=== PATIENT | male | born 1990 | race Caucasian/White ===

== ENCOUNTER 2018-03-19 08:39 | Observation (INO) ==
[2018-03-19] MEDS ORDERED: Ziprasidone injection 20 MG/ML VIAL IM ONE (08:47)
[2018-03-19] MEDS ORDERED: 0.9 % Sodium Chloride 1,000 ML IVC ONE ×2 (08:54→10:32)
--- NOTE | 2018-03-19 08:57 | Emergency Department Note ---
Overdose - [facility] Narrative Medical decision making narrative: Polysubstance abuse with accidental overdose with potential aspiration pneumonia The patient is hemodynamically stable with current treatment. He is still altered with his mental status most likely secondary to polysubstance abuse as well as chemical strains. The patient will be admitted for further stabilization. 1102: Discussed the case with hospitalist and agreed to admit the patient for further stabilization. Family was informed current assessment and plan and agree with disposition. They were informed that if the patient wakes up and is medically cleared and coherent he has the option of leaving the hospital on his own volition. 1340: The patient's ABG improved significantly and will wean to NRB as tolerated. The patient is stable for floor transfer - Differential Diagnosis Likely: accidental drug ingestion, abuse/neglect - Medical Records Medical records reviewed: Yes I reviewed the patient's medical records. - Lab Data Result diagrams: 03/19/18 09:25 03/19/18 09:25 Lab Results 03/19/18 03/19/18 03/19/18 Range/Units 09:02 09:02 09:25 WBC 19.7 H (4.3-11.1) K/mcL RBC 5.05 (4.19-5.50) M/mcL Hgb 16.0 (12.9-16.9) g/dL Hct 52.4 H (37.5-50.1) % MCV 103.8 H (83.0-100.0) fL MCH 31.7 (28.0-33.3) pg MCHC 30.5 L (31.6-35.5) g/dL RDW 12.0 (11.5-14.5) % Plt Count 293 (140-400) K/mcL MPV 10.6 (9.4-12.4) fL Immature Gran % 0.8 (0-4) % Seg Neutrophils % 87.9 % Lymphocytes % 7.1 % Monocytes % 3.5 % Eosinophils % 0.2 % Basophils % 0.5 % Neutrophils # 17.3 H (1.6-8.9) K/mcL Lymphocytes # 1.4 (0.6-4.6) K/mcL Monocytes # 0.7 (0.0-1.3) K/mcL Eosinophils # 0.0 (0.0-0.6) K/mcL Basophils # 0.1 (0.0-0.2) K/mcL Sample Site ABG pH (7.32-7.45) pH Units ABG pCO2 (35-45) mmHg ABG pO2 (85-104) mmHg ABG HCO3 (21-27) mEq/L ABG Total CO2 (20-26) mEq/L ABG O2 Saturation (95-98) % ABG Base Excess (-2 to 3) mEq/L Killian Test O2 Delivery Device Inspired O2 (1-15=lpm [id number]=%) Sodium (136-145) mEq/L Potassium (3.5-5.1) mEq/L Chloride (98-107) mEq/L Carbon Dioxide (23-29) mEq/L BUN (6-20) mg/dL Creatinine (0.70-1.30) mg/dL Est GFR ( Amer) (> 60) Est GFR (Non-Af Amer) (> 60) BUN/Creatinine Ratio (6-26) Glucose (70-105) mg/dL Calculated Osmolality (280-300) Lactic Acid (0.5-2.2) mmol/L Calcium (8.6-10.3) mg/dL Total Bilirubin (0.3-1.0) mg/dL Direct Bilirubin (0.0-0.2) mg/dL Indirect Bilirubin (0.0-1.2) mg/dL AST (13-39) Units/L ALT (7-52) Units/L Alkaline Phosphatase (34-104) Units/L Creatine Kinase (30-223) Units/L Serum Total Protein (6.4-8.9) g/dL Albumin (3.5-5.7) g/dL Globulin (2.4-3.5) g/dL Albumin/Globulin Ratio (1.1-2.2) Urine Color Yellow (Yellow) Urine Clarity Clear (Clear) Urine pH 5.5 (5.0-8.0) pH Units Ur Specific [place] 1.020 (1.010-1.025) Urine Protein Trace (Neg-Trace) mg/dL Urine Glucose (UA) 100 H (Normal) mg/dL Urine Ketones Negative (Negative) mg/dL Urine Blood Trace-lysed H (Negative) Urine Nitrite Negative (Negative) Urine Bilirubin Negative (Negative) Urine Urobilinogen Normal (Normal) mg/dL Ur Leukocyte Esterase Negative (Negative) Urine Microscopic RBC 0-3 (0-3) per hpf Urine Microscopic WBC 0-3 (0-3) per hpf Ur Squamous Epith Cells Few (None-Few) per lpf Amorphous Sediment Moderate H (Few) Salicylates (15.0-30.0) mg/dL Urine Opiates Screen Negative (Lfitzt=424) ng/mL Ur Oxycodone Screen Negative (Cutoff= 100) ng/mL Acetaminophen (10-20) mcg/mL Ur Barbiturates Screen Negative (Xmbcvk=125) ng/mL Ur Phencyclidine Scrn Negative (Cutoff=25) ng/mL Ur Amphetamines Screen Positive H (Dbskrg=1560) ng/mL U Benzodiazepines Scrn Positive H (Khocxe=988) ng/mL Urine Cocaine Screen Negative (Cutoff= 300) ng/mL U Marijuana (THC) Screen Positive H (Cutoff = 50) ng/mL Ethyl Alcohol (Less than 10) mg/dL Person Notif of Crit 03/19/18 03/19/18 03/19/18 Range/Units 09:25 09:34 11:10 WBC (4.3-11.1) K/mcL RBC (4.19-5.50) M/mcL Hgb (12.9-16.9) g/dL Hct (37.5-50.1) % MCV (83.0-100.0) fL MCH (28.0-33.3) pg MCHC (31.6-35.5) g/dL RDW (11.5-14.5) % Plt Count (140-400) K/mcL MPV (9.4-12.4) fL Immature Gran % (0-4) % Seg Neutrophils % % Lymphocytes % % Monocytes % % Eosinophils % % Basophils % % Neutrophils # (1.6-8.9) K/mcL Lymphocytes # (0.6-4.6) K/mcL Monocytes # (0.0-1.3) K/mcL Eosinophils # (0.0-0.6) K/mcL Basophils # (0.0-0.2) K/mcL Sample Site ABG pH (7.32-7.45) pH Units ABG pCO2 (35-45) mmHg ABG pO2 (85-104) mmHg ABG HCO3 (21-27) mEq/L ABG Total CO2 (20-26) mEq/L ABG O2 Saturation (95-98) % ABG Base Excess (-2 to 3) mEq/L Killian Test O2 Delivery Device Inspired O2 (1-15=lpm [id number]=%) Sodium 139 (136-145) mEq/L Potassium 4.2 (3.5-5.1) mEq/L Chloride 97 L (98-107) mEq/L Carbon Dioxide 17 L (23-29) mEq/L BUN 17 (6-20) mg/dL Creatinine 2.33 H (0.70-1.30) mg/dL Est GFR ( Amer) 41 L (> 60) Est GFR (Non-Af Amer) 34 L (> 60) BUN/Creatinine Ratio 7 (6-26) Glucose 269 H (70-105) mg/dL Calculated Osmolality 299 (280-300) Lactic Acid 2.8 H (0.5-2.2) mmol/L Calcium 9.8 (8.6-10.3) mg/dL Total Bilirubin 0.4 (0.3-1.0) mg/dL Direct Bilirubin 0.1 (0.0-0.2) mg/dL Indirect Bilirubin 0.3 (0.0-1.2) mg/dL AST 30 (13-39) Units/L ALT 17 (7-52) Units/L Alkaline Phosphatase 91 (34-104) Units/L Creatine Kinase 272 H (30-223) Units/L Serum Total Protein 8.2 (6.4-8.9) g/dL Albumin 5.4 (3.5-5.7) g/dL Globulin 2.8 (2.4-3.5) g/dL Albumin/Globulin Ratio 1.9 (1.1-2.2) Urine Color (Yellow) Urine Clarity (Clear) Urine pH (5.0-8.0) pH Units Ur Specific [place] (1.010-1.025) Urine Protein (Neg-Trace) mg/dL Urine Glucose (UA) (Normal) mg/dL Urine Ketones (Negative) mg/dL Urine Blood (Negative) Urine Nitrite (Negative) Urine Bilirubin (Negative) Urine Urobilinogen (Normal) mg/dL Ur Leukocyte Esterase (Negative) Urine Microscopic RBC (0-3) per hpf Urine Microscopic WBC (0-3) per hpf Ur Squamous Epith Cells (None-Few) per lpf Amorphous Sediment (Few) Salicylates < 2.5 L (15.0-30.0) mg/dL Urine Opiates Screen (Bodjih=025) ng/mL Ur Oxycodone Screen (Cutoff= 100) ng/mL Acetaminophen < 10 L (10-20) mcg/mL Ur Barbiturates Screen (Vhcntb=165) ng/mL Ur Phencyclidine Scrn (Cutoff=25) ng/mL Ur Amphetamines Screen (Vbvmgt=3423) ng/mL U Benzodiazepines Scrn (Gunwyn=759) ng/mL Urine Cocaine Screen (Cutoff= 300) ng/mL U Marijuana (THC) Screen (Cutoff = 50) ng/mL Ethyl Alcohol < 10 (Less than 10) mg/dL Person Notif of Crit 03/19/18 Range/Units 11:49 WBC (4.3-11.1) K/mcL RBC (4.19-5.50) M/mcL Hgb (12.9-16.9) g/dL Hct (37.5-50.1) % MCV (83.0-100.0) fL MCH (28.0-33.3) pg MCHC (31.6-35.5) g/dL RDW (11.5-14.5) % Plt Count (140-400) K/mcL MPV (9.4-12.4) fL Immature Gran % (0-4) % Seg Neutrophils % % Lymphocytes % % Monocytes % % Eosinophils % % Basophils % % Neutrophils # (1.6-8.9) K/mcL Lymphocytes # (0.6-4.6) K/mcL Monocytes # (0.0-1.3) K/mcL Eosinophils # (0.0-0.6) K/mcL Basophils # (0.0-0.2) K/mcL Sample Site R Radial ABG pH 7.17 L* (7.32-7.45) pH Units ABG pCO2 64 H (35-45) mmHg ABG pO2 65 L (85-104) mmHg ABG HCO3 23 (21-27) mEq/L ABG Total CO2 25 (20-26) mEq/L ABG O2 Saturation 85 L (95-98) % ABG Base Excess -6 L (-2 to 3) mEq/L Killian Test N/A O2 Delivery Device Oxy Mask Inspired O2 40.0 (1-15=lpm by94-785=%) Sodium (136-145) mEq/L Potassium (3.5-5.1) mEq/L Chloride (98-107) mEq/L Carbon Dioxide (23-29) mEq/L BUN (6-20) mg/dL Creatinine (0.70-1.30) mg/dL Est GFR ( Amer) (> 60) Est GFR (Non-Af Amer) (> 60) BUN/Creatinine Ratio (6-26) Glucose (70-105) mg/dL Calculated Osmolality (280-300) Lactic Acid (0.5-2.2) mmol/L Calcium (8.6-10.3) mg/dL Total Bilirubin (0.3-1.0) mg/dL Direct Bilirubin (0.0-0.2) mg/dL Indirect Bilirubin (0.0-1.2) mg/dL AST (13-39) Units/L ALT (7-52) Units/L Alkaline Phosphatase (34-104) Units/L Creatine Kinase (30-223) Units/L Serum Total Protein (6.4-8.9) g/dL Albumin (3.5-5.7) g/dL Globulin (2.4-3.5) g/dL Albumin/Globulin Ratio (1.1-2.2) Urine Color (Yellow) Urine Clarity (Clear) Urine pH (5.0-8.0) pH Units Ur Specific [place] (1.010-1.025) Urine Protein (Neg-Trace) mg/dL Urine Glucose (UA) (Normal) mg/dL Urine Ketones (Negative) mg/dL Urine Blood (Negative) Urine Nitrite (Negative) Urine Bilirubin (Negative) Urine Urobilinogen (Normal) mg/dL Ur Leukocyte Esterase (Negative) Urine Microscopic RBC (0-3) per hpf Urine Microscopic WBC (0-3) per hpf Ur Squamous Epith Cells (None-Few) per lpf Amorphous Sediment (Few) Salicylates (15.0-30.0) mg/dL Urine Opiates Screen (Hxckdp=948) ng/mL Ur Oxycodone Screen (Cutoff= 100) ng/mL Acetaminophen (10-20) mcg/mL Ur Barbiturates Screen (Lzuqwh=348) ng/mL Ur Phencyclidine Scrn (Cutoff=25) ng/mL Ur Amphetamines Screen (Sfuarb=1661) ng/mL U Benzodiazepines Scrn (Kzysvb=793) ng/mL Urine Cocaine Screen (Cutoff= 300) ng/mL U Marijuana (THC) Screen (Cutoff = 50) ng/mL Ethyl Alcohol (Less than 10) mg/dL Person Notif of Crit dr kyle vidal - Radiology Data Radiology results reviewed: Yes I reviewed the patient's radiology results. Chest X-Ray 03/19/18 09:51 IMPRESSION: 1. Subtle left upper lobe airspace disease could represent pneumonia. Recommend chest radiograph in 8 weeks to confirm resolution. D/ / Terry Altamirano MD / Terry Altamirano MD Interpreting Provider: Terry Altamirano MD - EKG Data EKG attestation: Yes I reviewed and interpreted this EKG. EKG shows normal: axis, intervals Rate: tachycardia Interpretation: nonspecific ST-T wave changes Overdose HPI - General Chief Complaint: ED Overdose Stated Complaint: overdose Time Seen by Provider: 03/19/18 08:44 Source: family, EMS Mode of arrival: EMS Limitations: altered mental status Nursing Notes Reviewed: Yes Vital Signs Reviewed: Yes - History of Present Illness HPI Narrative: Patient was found on the basement of his parents only unconscious . She has office saw the patient at home and was given 4 mg of intranasal Narcan with minimal improvement. EMS squad arrived at the scene and the patient was given 2 mg of Narcan IV through a intraosseous IV access. 1000: I spoke to family and they told me the patient was done approximately 30 minutes to 2 hours. The patient apparently was bluish in appearance and had sonorous breathing when they evaluated him. EMS was called subsequently. The patient apparently had narcotics on him during that time. The patient does have a history of drug overdoses in the past. Pt Subjective Complaint: accidental overdose Onset (ago): unknown Intent: unknown How Overdose Was Discovered: family/friend present at time Associated symptoms: other (Agitation, hypoxia) Treatments Prior to Arrival: narcan - Related Data Home Medications Medication Instructions Recorded Confirmed Buprenorphine HCl/Naloxone HCl 1 tab PO BID 06/24/17 10/01/17 [Suboxone 8 mg-2 mg Sl Film] Allergies Allergy/AdvReac Type Severity Reaction Status Date / Time No Known Allergies Allergy Verified 07/01/15 20:54 Limitations: ROS unobtainable due to patients medical condition Past Medical History - Past Medical History Medical history: Reports: other Surgical history: Reports: appendectomy, other Psychiatric history: Reports: anxiety, depression - Social History Smoking Status: Current every day smoker Smokeless Tobacco Status: Yes Alcohol use: Reports: occasionally Drug use: Reports: opiates, marijuana, methamphetamine, IV Drug Use, prescription drug abuse Physical Exam - General Limitations: altered mental status General appearance: in distress - Head Head exam: atraumatic - Eye Eye exam: Present: mydriasis, periorbital tenderness. Absent: periorbital swelling - ENT ENT exam: mucous membranes moist, normal external ear exam, other - Neck Neck exam: Present: trachea midline, other (Track lockhart on the left lateral neck area) - Respiratory Respiratory exam: Present: normal lung sounds bilaterally, respiratory distress. Absent: wheezes, stridor - Cardiovascular Cardiovascular exam: Present: normal rhythm, tachycardia, normal heart sounds - Abdominal Exam Abdominal exam: Present: soft, tenderness. Absent: distention, guarding, rebound, rigidity - Extremities Exam Extremities exam: Present: normal inspection, full ROM. Absent: tenderness, pedal edema - Expanded Lower Extremity Exam Hip/Pelvis exam: Present: abrasion (Left anterior aspect) Upper leg exam: Absent: swelling, ecchymosis, deformity, erythema Knee exam: Present: full ROM. Absent: swelling, deformity Lower leg exam: Present: other (Right intraosseous IV access on the proximal tibia) Ankle exam: Absent: deformity Neurovascular/Tendon exam: Present: normal capillary refill, motor deficit, sensory deficit. Absent: extremity cold to touch, pallor - Skin Skin exam: Present: warm, intact. Absent: cyanosis, diaphoresis, erythema Course - Reevaluation(s) Reevaluation #1: The patient will be given Geodon 10 mg IM and if not improved with his agitation he will be given 2 mg of Ativan with 25 mg of Benadryl and we will reassess his agitation. Time: 08:55 Reevaluation #2: Patient is mildly improve his agitation and has minimal cooperative. He will be given 10 mg of Geodon and will a soft restraints for his safety as well as safety of staff for his assessment. Time: 09:24 Reevaluation #3: The patient was stable hemodynamically and maintaining saturations with O2 supplementation. He was given IV fluids as well as antibiotics secondary to potential aspiration pneumonia. The patient will be observed and admitted in the hospital for the next 24 hours for further stabilization. Time: 10:15 Additional Reevaluation(s): 1205: Patient's ABG shows acute respiratory acidosis secondary to acute respiratory failure from overdose. I discussed the patient results with hospitalist and agree with BiPAP to help alleviate his hypercarbia. The patient is able tolerate the BiPAP placement and will repeat the gas to see if he stabilizes. The patient otherwise is hemodynamically stable. Once the patient heads towards improvement he will be transferred to the general floor for further stabilization Vital Signs Temperature 98 F 03/19/18 08:41 Pulse Rate 160 03/19/18 08:41 Respiratory Rate 28 03/19/18 08:41 Blood Pressure 00/00 03/19/18 08:41 O2 Sat by Pulse Oximetry 96 03/19/18 08:41 Temperature 97.5 F L 03/19/18 14:35 Pulse Rate 98 03/19/18 14:35 Respiratory Rate 16 03/19/18 14:35 Blood Pressure 87/57 03/19/18 14:35 O2 Sat by Pulse Oximetry 98 03/19/18 14:35 Oxygen Delivery Oxygen Delivery Bipap Critical Care Time Critical Care Time: Yes Total Critical Care Time: 120 Attestation: Critical care performed: Time is exclusive of separately billable procedures. Time includes: direct patient care, patient reassessment, coordination of patient care, interpretation of data (laboratory data, radiology data, and respiratory data), review of patient's medical records, medical consultation and documentation of patient care. Procedures included in critical care time: Procedures excluded from critical care time: Disposition Clinical Impression: Acute respiratory acidosis Drug overdose Qualifiers: Encounter type: initial encounter Injury intent: accidental or unintentional Qualified Code(s): T50.901A - Poisoning by unspecified drugs, medicaments and biological substances, accidental (unintentional), initial encounter Aspiration pneumonia Qualifiers: Aspiration pneumonia type: unspecified Laterality: left Lung location: upper lobe of lung Qualified Code(s): J69.0 - Pneumonitis due to inhalation of food and vomit Disposition: Admitted As Inpatient Condition: Fair Time of Disposition: 10:36 (Dr Saez)
[2018-03-19] MEDS ORDERED: *HR* LORazepam 2 MG/ML VIAL IVP ONE (09:02)
[2018-03-19 09:07] LABS: Bilirubin,Urine Negative (Negative); Blood,Urine Trace-lysed (Negative); Clarity,Urine Clear (Clear); Color,Urine Yellow (Yellow); Glucose,Urine (UA) 100 mg/dL (Normal); Ketones,Urine Negative (Negative); Leukocyte Esterase,Urine Negative (Negative); Nitrite,Urine Negative (Negative); PH,Urine 5.5 pH Units (5.0-8.0); Protein,Urine Trace mg/dL (Neg-Trace); Urobilinogen,Urine Normal (Normal)
[2018-03-19] MEDS ORDERED: Ondansetron 4 MG/2 ML VIAL IVP STA (09:12)
[2018-03-19] MEDS ORDERED: Ondansetron 4 MG/2 ML VIAL ONE ×2 (09:13→13:51)
[2018-03-19 09:15] LABS: Amorphous Sediment,Urine Moderate (Few); RBC,Urine 0-3 per hpf (0-3); Squamous Epithelial Cell,Urine Few per lpf (None-Few); WBC,Urine 0-3 per hpf (0-3)
[2018-03-19 09:22] LABS: Amphetamine Screen,Urine Positive ng/mL (Cutoff=1000); Barbiturate Screen,Urine Negative ng/mL (Cutoff=200); Benzodiazepines Screen,Urine Positive ng/mL (Cutoff=200); Cannabinoid Screen,Urine Positive ng/mL (Cutoff = 50); Cocaine Screen,Urine Negative ng/mL (Cutoff= 300); Opiate Screen,Urine Negative ng/mL (Cutoff=300); Phencyclidine Screen,Urine Negative ng/mL (Cutoff=25)
[2018-03-19] MEDS ORDERED: Ziprasidone injection 20 MG/ML VIAL IM STA (09:22)
[2018-03-19 09:33] LABS: Basophils # 0.1 K/mcL (0.0-0.2); Basophils % 0.5 %; Eosinophils % 0.2 %; Hematocrit 52.4 % (37.5-50.1); Immature Granulocytes % 0.8 % (0-4); Lymphocytes # 1.4 K/mcL (0.6-4.6); Lymphocytes % 7.1 %; Mean Corpuscular HGB Conc 30.5 g/dL (31.6-35.5); Mean Corpuscular Hemoglobin 31.7 pg (28.0-33.3); Mean Corpuscular Volume 103.8 fL (83.0-100.0); Mean Platelet Volume 10.6 fL (9.4-12.4); Monocytes # 0.7 K/mcL (0.0-1.3); Monocytes % 3.5 %; Neutrophils # 17.3 K/mcL (1.6-8.9); Platelet Count 293 K/mcL (140-400); Red Blood Count 5.05 M/mcL (4.19-5.50); Segmented Neutrophils % 87.9 %
[2018-03-19 09:55] LABS: Acetaminophen < 10 mcg/mL (10-20)
[2018-03-19 09:56] LABS: Alanine Aminotransferase 17 Units/L (7-52); Albumin 5.4 g/dL (3.5-5.7); Albumin/Globulin Ratio 1.9 (1.1-2.2); Alkaline Phosphatase 91 Units/L (34-104); Aspartate Amino Transferase 30 Units/L (13-39); BUN/Creatinine Ratio 7 (6-26); Bilirubin,Direct 0.1 mg/dL (0.0-0.2); Bilirubin,Indirect 0.3 mg/dL (0.0-1.2); Bilirubin,Total 0.4 mg/dL (0.3-1.0); Blood Urea Nitrogen 17 mg/dL (6-20); Calcium 9.8 mg/dL (8.6-10.3); Carbon Dioxide 17 mEq/L (23-29); Chloride 97 mEq/L (98-107); Ethanol < 10 mg/dL (Less than 10); Globulin 2.8 g/dL (2.4-3.5); Glucose 269 mg/dL (70-105); Osmolality,Calculated 299 (280-300); Potassium 4.2 mEq/L (3.5-5.1); Salicylate < 2.5 mg/dL (15.0-30.0); Sodium 139 mEq/L (136-145); Total Protein 8.2 g/dL (6.4-8.9); eGFR For African Americans 41 (> 60); eGFR For Non-African Americans 34 (> 60)
[2018-03-19] MEDS ORDERED: MetroNIDAZOLE 500 MG/100 ML 500 MG/100 ML BAG IVPB ONE (10:20)
[2018-03-19] MEDS ORDERED: cefTRIAXone 2,000 MG in 0.9 % Sodium Chloride Mini Bag 100 ML IVPB ONE (10:20)
[2018-03-19 11:55] LABS: ABG Base Excess -6 mEq/L (-2 to 3); ABG HCO3 23 mEq/L (21-27); ABG Oxygen Saturation 85 % (95-98); ABG PCO2 64 mmHg (35-45); ABG PH 7.17 pH Units (7.32-7.45); ABG PO2 65 mmHg (85-104); ABG TCO2 25 mEq/L (20-26)
[2018-03-19 13:35] LABS: ABG Base Excess -5 mEq/L (-2 to 3); ABG HCO3 24 mEq/L (21-27); ABG Oxygen Saturation 100 % (95-98); ABG PCO2 57 mmHg (35-45); ABG PH 7.23 pH Units (7.32-7.45); ABG PO2 224 mmHg (85-104); ABG TCO2 25 mEq/L (20-26); Blood Gas Modality BiLevel; Blood Gas Respiration Rate 14; Blood Gas VT 500 cc
[2018-03-19] MEDS ORDERED: Naloxone 0.4 MG/ML INJ IVP PRN (13:51)
[2018-03-19] MEDS ORDERED: 0.9 % Sodium Chloride 1,000 ML IVC SCH (13:51)
[2018-03-19] MEDS ORDERED: Ondansetron 4 MG/2 ML VIAL IVP PRN (13:51)
--- NOTE | 2018-03-19 17:11 | Electrocardiograph Report ---
[place] [id number] Test Date: 2018-03-19 Pat Name: Denny Hooks Department: [id number] Room: [facility] Gender: M [employer]: [id number] : 1990 Requested By: Lowell Kathleen Order Number: [id number] Reading MD: Sully Avila Measurements Intervals [place] Rate: 98 P: 33 WA: 116 QRS: 10 QRSD: 103 T: 44 QT: 352 QTc: 408 Interpretive Statements ARTIFACT LIMITS INTERPRETATION Electronically Signed On 03-19-2018 17:09:10 EDT by Sully Avila
--- NOTE | 2018-03-19 17:24 | Internal Med History&Physical ---
Date of Encounter: 03/19/18 Time of Encounter: 17:05 Assessment and Plan (1) Drug overdose Current visit: Yes Status: Acute He was given Narcan, Benadryl, and Geodon in emergency room. Will order prn IV Ativan for agitation Qualifiers: Encounter type: initial encounter Injury intent: accidental or unintentional Qualified Code(s): T50.901A - Poisoning by unspecified drugs, medicaments and biological substances, accidental (unintentional), initial encounter (2) Aspiration pneumonia Current visit: Yes Status: Acute He was given a dose of Rocephin in emergency room. Will give IV Zosyn and recheck labs in a.m. Qualifiers: Aspiration pneumonia type: unspecified Laterality: left Lung location: upper lobe of lung Qualified Code(s): J69.0 - Pneumonitis due to inhalation of food and vomit (3) Macrocytosis Current visit: Yes Status: Acute We will order B12, folate, and TSH in a.m. (4) Azotemia Current visit: Yes Status: Acute Continue IV fluids. Recheck labs in a.m. (5) Acute respiratory acidosis Current visit: Yes Status: Acute Improved on follow-up ABG. Continue to monitor. (6) Conjunctivitis Current visit: Yes Status: Acute Will give Cipro eyedrops. Qualifiers: Conjunctivitis type: unspecified Laterality: bilateral Qualified Code(s) : H10.9 - Unspecified conjunctivitis Internal Medicine - H&P: HPI Chief complaint: Overdose Admitted From: Emergency Dept Plans for Post Hospital Care: Home History of present illness: Mr. Hooks is a 27 year old male who was brought to emergency room after he was found unconscious in the basement of his parent's home. The squad was called and he was given 2 mg Narcan through intraosseous IV access. He was brought to emergency room where evaluation showed positive findings for amphetamines, benzodiazepines, and THC. He was stabilized and admitted to [facility] floor for ongoing care needs. He is obtunded and cannot give any history. He was seen in [facility] emergency room September 2017 following accidental overdose. Past Med Surg Social Fam HX - Past Medical History Medical history: other Additional medical history: drug abuse Psychiatric history: anxiety, depression - Past Surgical History Surgical History: appendectomy, other Additional surgical history: orif jaw. ninoska on neck. - Social History Smoking Status: Current every day smoker Smokeless Tobacco Status: Yes Alcohol use: occasionally Drug use: opiates, marijuana, methamphetamine, IV Drug Use, prescription drug abuse Internal Medicine - H&P: Meds Buprenorphine HCl/Naloxone HCl [Suboxone 8 mg-2 mg Sl Film] 1 tab PO BID [History] 3 Allergy/AdvReac Type Severity Reaction Status Date / Time No Known Allergies Allergy Verified 07/01/15 20:54 All Systems PM: A 10-system review of systems was performed and is negative for pertinent findings except as documented above in the HPI. Review of systems: Unobtainable from patient because of obtundation. - Constitutional Vitals: Temp Pulse Resp BP Pulse Ox 97.5 F L 98 16 87/57 98 03/19/18 14:35 03/19/18 14:35 03/19/18 14:35 03/19/18 14:35 03/19/18 14:35 Exam: Gen.: He is a well-developed well-nourished male lying in bed who appears in no acute distress. HEENT: Head is atraumatic and normal cephalic. Eyes: He has a conjugate gaze. There is bilateral conjunctivitis present with slight matting of the eyelashes. Mouth: Mucosa is dry Neck: There is no thyromegaly or adenopathy noted. Heart: Regular without murmurs gallops or ectopics Lungs: Clear anteriorly and laterally Abdomen: Bowel sounds are present. The abdomen is nontender to palpation. There are linear and round excoriations in the suprapubic area and right lower abdominal /inguinal area. No active bleeding is noted. Extremities: He is wearing soft restraints on all 4 extremities. There is no cyanosis edema or clubbing noted. Dorsalis pedis and posttibial pulses are 1-2 over 2 bilaterally. He has a Coban wrap on his right anterior tibial area from presumed IO administration. Neurologic: Mental status: He is obtunded and does not speak. He follows commands to open his eyes and mouth. Cranial nerves: He has no spontaneous facial movements. Motor: He is in soft restraints on all 4 extremities. He does not attempt to move spontaneously. No further neurologic testing is attempted. Skin: Warm and dry. He has multiple tattoos. Internal Med - H&P Results - Labs CBC & Chem 7: 03/19/18 09:25 03/19/18 09:25 - ABG Interpretation ABG results: 03/19/18 13:31 ABG pH 7.23 L ABG pCO2 57 H ABG pO2 224 H D ABG HCO3 24 ABG Total CO2 25 ABG O2 Saturation 100 H ABG Base Excess -5 L
[2018-03-19] MEDS ORDERED: *HR* LORazepam 2 MG/ML VIAL IVP PRN (21:03)
[2018-03-19] MEDS: Piperacillin/Tazobactam 3.375 GM in 0.9 % Sodium Chloride Mini Bag 100 ML IVPB SCH (21:10)
[2018-03-19] MEDS: Ciprofloxacin OPTH Soln 2.5 ML BOTTLE RIGHT EYE SCH (21:11)
[2018-03-19] MEDS: Ciprofloxacin OPTH Soln 2.5 ML BOTTLE LEFT EYE SCH (21:11)
[2018-03-20] MEDS ORDERED: *HR* LORazepam 2 MG/ML VIAL IVP SCH
[2018-03-20] MEDS: Piperacillin/Tazobactam 3.375 GM in 0.9 % Sodium Chloride Mini Bag 100 ML IVPB SCH ×3 (00:49→16:44)
[2018-03-20] MEDS: Ciprofloxacin OPTH Soln 2.5 ML BOTTLE LEFT EYE SCH ×3 (00:53→16:45)
[2018-03-20] MEDS: Ciprofloxacin OPTH Soln 2.5 ML BOTTLE RIGHT EYE SCH ×3 (00:53→16:45)
[2018-03-20 08:31] LABS: Hematocrit 44.5 % (37.5-50.1); Hemoglobin 14.8 g/dL (12.9-16.9); Mean Corpuscular HGB Conc 33.3 g/dL (31.6-35.5); Mean Corpuscular Volume 93.3 fL (83.0-100.0); Mean Platelet Volume 11.4 fL (9.4-12.4); Platelet Count 159 K/mcL (140-400); Red Blood Count 4.77 M/mcL (4.19-5.50); Red Cell Distribution Width 12.1 % (11.5-14.5)
[2018-03-20 11:13] LABS: BUN/Creatinine Ratio 16 (6-26); Blood Urea Nitrogen 16 mg/dL (6-20); Calcium 9.1 mg/dL (8.6-10.3); Carbon Dioxide 27 mEq/L (23-29); Chloride 102 mEq/L (98-107); Glucose 92 mg/dL (70-105); Osmolality,Calculated 283 (280-300); Potassium 4.1 mEq/L (3.5-5.1); Sodium 136 mEq/L (136-145); eGFR For African Americans > 60 (> 60); eGFR For Non-African Americans > 60 (> 60)
--- NOTE | 2018-03-20 12:03 | Internal Med Progress Note ---
Date of Encounter: 03/20/18 Time of Encounter: 11:55 - Assessment and plan (1) Drug overdose Current Visit: Yes Status: Acute Assessment and plan: March 20. Will ask [facility] to evaluate. Qualifiers: Encounter type: initial encounter Injury intent: accidental or unintentional Qualified Code(s): T50.901A - Poisoning by unspecified drugs, medicaments and biological substances, accidental (unintentional), initial encounter (2) Aspiration pneumonia Current Visit: Yes Status: Acute Assessment and plan: March 20. Continue IV Zosyn. Recheck labs in a.m. Anticipate discharge home tomorrow if stable. Qualifiers: Aspiration pneumonia type: unspecified Laterality: left Lung location: upper lobe of lung Qualified Code(s): J69.0 - Pneumonitis due to inhalation of food and vomit (3) Macrocytosis Current Visit: Yes Status: Acute Assessment and plan: March 20. TSH was normal. B12 and folate levels are pending. (4) Azotemia Current Visit: Yes Status: Acute Assessment and plan: March 20. Creatinine now normal at 1.02. Will continue IV fluids and recheck labs in a.m. (5) Acute respiratory acidosis Current Visit: Yes Status: Acute Assessment and plan: March 20. Presumed resolved. (6) Conjunctivitis Current Visit: Yes Status: Acute Assessment and plan: March 20. Continue Cipro eyedrops. Qualifiers: Conjunctivitis type: unspecified Laterality: bilateral Qualified Code(s) : H10.9 - Unspecified conjunctivitis - Subjective Interval history: March 20. He has no new complaints. - Constitutional Vitals: Temp Pulse Resp BP Pulse Ox 99.0 F 82 16 108/66 96 03/20/18 06:26 03/20/18 06:26 03/20/18 06:26 03/20/18 06:26 03/20/18 06:26 Exam: He is resting comfortably in bed and appears in no acute distress. His affect is overall cheerful. I reviewed his medications. I discussed pertinent lab results with him. Internal Medicine: Result - Labs CBC & Chem 7: 03/20/18 08:01 03/20/18 08:01 Labs: Short CBC 03/20/18 Range/Units 08:01 WBC 16.6 H (4.3-11.1) K/mcL Hgb 14.8 (12.9-16.9) g/dL Hct 44.5 (37.5-50.1) % Plt Count 159 (140-400) K/mcL BMP 03/20/18 08:01 Sodium 136 Potassium 4.1 Chloride 102 Carbon Dioxide 27 BUN 16 Creatinine 1.02 Glucose 92 Calcium 9.1 - ABG Interpretation ABG results: ABG ABG pH 7.23 pH Units (7.32-7.45) L 03/19/18 13:31 ABG pCO2 57 mmHg (35-45) H 03/19/18 13:31 ABG pO2 224 mmHg (85-104) H D 03/19/18 13:31 ABG O2 Saturation 100 % (95-98) H 03/19/18 13:31 Consult Discharge Plan - Plan Referrals: NONE,PCP [Primary Care Provider] -
[2018-03-20 12:21] LABS: Folate 7.7 ng/mL (3.0-16.0)
[2018-03-20] MEDS: Lactobacillus 1 EACH CAP.SPRINK PO SCH (20:31)
[2018-03-21] MEDS: Piperacillin/Tazobactam 3.375 GM in 0.9 % Sodium Chloride Mini Bag 100 ML IVPB SCH ×2 (00:05→08:12)
[2018-03-21] MEDS: Ciprofloxacin OPTH Soln 2.5 ML BOTTLE RIGHT EYE SCH ×2 (00:57→08:13)
[2018-03-21] MEDS: Ciprofloxacin OPTH Soln 2.5 ML BOTTLE LEFT EYE SCH ×2 (00:57→08:13)
[2018-03-21 06:12] LABS: Basophils % 0.3 %; Eosinophils # 0.1 K/mcL (0.0-0.6); Eosinophils % 1.1 %; Hemoglobin 14.5 g/dL (12.9-16.9); Immature Granulocytes % 0.4 % (0-4); Lymphocytes # 1.8 K/mcL (0.6-4.6); Lymphocytes % 14.7 %; Mean Corpuscular HGB Conc 33.7 g/dL (31.6-35.5); Mean Corpuscular Hemoglobin 30.9 pg (28.0-33.3); Mean Corpuscular Volume 91.5 fL (83.0-100.0); Mean Platelet Volume 10.6 fL (9.4-12.4); Monocytes % 8.6 %; Platelet Count 200 K/mcL (140-400); Red Cell Distribution Width 11.9 % (11.5-14.5); Segmented Neutrophils % 74.9 %
[2018-03-21 06:35] LABS: BUN/Creatinine Ratio 10 (6-26); Blood Urea Nitrogen 9 mg/dL (6-20); Calcium 9.4 mg/dL (8.6-10.3); Carbon Dioxide 28 mEq/L (23-29); Chloride 101 mEq/L (98-107); Glucose 109 mg/dL (70-105); Osmolality,Calculated 277 (280-300); Potassium 3.7 mEq/L (3.5-5.1); Sodium 134 mEq/L (136-145); eGFR For African Americans > 60 (> 60); eGFR For Non-African Americans > 60 (> 60)
[2018-03-21 07:39] VITALS: BP 123/73
[2018-03-21] MEDS: Lactobacillus 1 EACH CAP.SPRINK PO SCH (08:12)
--- NOTE | 2018-03-21 09:55 | Discharge Summary ---
Date of Encounter: 03/21/18 Time of Encounter: 09:45 - Discharge Diagnosis (1) Drug overdose Priority: Primary Status: Acute Qualifiers: Encounter type: initial encounter Injury intent: accidental or unintentional Qualified Code(s): T50.901A - Poisoning by unspecified drugs, medicaments and biological substances, accidental (unintentional), initial encounter (2) Aspiration pneumonia Priority: Secondary Status: Acute Qualifiers: Aspiration pneumonia type: unspecified Laterality: left Lung location: upper lobe of lung Qualified Code(s): J69.0 - Pneumonitis due to inhalation of food and vomit (3) Macrocytosis Priority: Secondary Status: Resolved (4) Azotemia Priority: Secondary Status: Resolved (5) Acute respiratory acidosis Priority: Secondary Status: Resolved (6) Conjunctivitis Priority: Secondary Status: Resolved Qualifiers: Conjunctivitis type: unspecified Laterality: bilateral Qualified Code(s) : H10.9 - Unspecified conjunctivitis Hospital course: Mr. Hooks is a 27 year old male who was brought to emergency room after he was found unconscious in the basement of his parent's home. The squad was called and he was given 2 mg Narcan through intraosseous IV access. He was brought to emergency room where evaluation showed positive findings for amphetamines, benzodiazepines, and THC. He was stabilized and admitted to [facility] floor for ongoing care needs. Initial orders were written by the emergency room physician. I saw him on March 19 and performed a history and physical. He was given Narcan, Benadryl, and Geodon in emergency room. Mental status and alertness gradually improved. He was seen by mental health clinic personnel on March 20 and a safety plan was arranged. He will follow up with [facility] personnel as directed. IV fluids were given and azotemia resolved. He was started on IV Zosyn following single dose of Rocephin given in emergency room. WBC improved to 12.0 on day of discharge with resolution of left shift. He will continue with Augmentin and probiotic for 3 additional days at discharge. - Time Spent with Patient Total time spent providing and/or coordinating discharge services: - Discharge Medications Prescriptions: Amoxicillin/Clavulanate [Augmentin] 875 mg PO BIDWM #6 tablet Lactobacillus [Culturelle] 1 each PO BID #6 cap.sprink Home Medications: Buprenorphine HCl/Naloxone HCl [Suboxone 8 mg-2 mg Sl Film] 1 tab PO BID [History] Amoxicillin/Clavulanate [Augmentin] 875 mg PO BIDWM #6 tablet 03/21/18 [Rx] Lactobacillus [Culturelle] 1 each PO BID #6 cap.sprink 03/21/18 [Rx] Allergies/Adverse Reactions: 3 Allergy/AdvReac Type Severity Reaction Status Date / Time No Known Allergies Allergy Verified 07/01/15 20:54 Date of admission: 03/19/18 11:59 Primary care physician: PCP NONE - Constitutional Vitals: Temp Pulse Resp BP Pulse Ox 98.7 F 73 16 123/73 92 03/21/18 08:00 03/21/18 08:00 03/21/18 08:00 03/21/18 08:00 03/21/18 08:00 - Patient Status Disposition: Home, Self-Care Condition: Fair Functional capacity at discharge: independent ambulation Overall status at discharge: patient is back to baseline - Discharge Instructions Instructions: Community-Acquired Pneumonia, Early Childhood Assistant (GEN) Follow Up With: NONE,PCP [Primary Care Provider] - - Diet and Activity Diet: advance to your usual diet
== END 2018-03-21 11:15 | disposition home or self-care (01) ==
LOC: EMEROOPIK 08:39 → INPPIK 08:39
PROVIDERS: ADMIT Internal Medicine; ATTEND Internal Medicine

== ENCOUNTER 2018-07-09 16:52 | Observation (INO) ==
[2018-07-09] MEDS ORDERED: 0.9 % Sodium Chloride 1,000 ML IVC ONE (17:09)
--- NOTE | 2018-07-09 17:21 | Emergency Department Note ---
Overdose - Differential Diagnosis Likely: cocaine intoxication, suicide attempt by multiple drug overdose, intentional overdose, accidental drug ingestion - Medical Records Medical records reviewed: Yes I reviewed the patient's medical records. - Lab Data Lab results reviewed: Yes I reviewed the patient's lab results. Result diagrams: 07/09/18 17:39 07/09/18 17:39 Lab Results 07/09/18 07/09/18 Range/Units 17:39 17:39 WBC 7.0 (4.3-11.1) K/mcL RBC 4.60 (4.19-5.50) M/mcL Hgb 14.0 (12.9-16.9) g/dL Hct 40.4 (37.5-50.1) % MCV 87.8 (83.0-100.0) fL MCH 30.4 (28.0-33.3) pg MCHC 34.7 (31.6-35.5) g/dL RDW 12.2 (11.5-14.5) % Plt Count 244 (140-400) K/mcL MPV 10.5 (9.4-12.4) fL Immature Gran % 0.1 (0-4) % Seg Neutrophils % 70.2 % Lymphocytes % 18.1 % Monocytes % 8.6 % Eosinophils % 2.6 % Basophils % 0.4 % Neutrophils # 4.9 (1.6-8.9) K/mcL Lymphocytes # 1.3 (0.6-4.6) K/mcL Monocytes # 0.6 (0.0-1.3) K/mcL Eosinophils # 0.2 (0.0-0.6) K/mcL Basophils # 0.0 (0.0-0.2) K/mcL Sodium 134 L (136-145) mEq/L Potassium 3.6 (3.5-5.1) mEq/L Chloride 101 (98-107) mEq/L Carbon Dioxide 25 (23-29) mEq/L BUN 13 (6-20) mg/dL Creatinine 0.99 (0.70-1.30) mg/dL Est GFR ( Amer) > 60 (> 60) Est GFR (Non-Af Amer) > 60 (> 60) BUN/Creatinine Ratio 13 (6-26) Glucose 120 H (70-105) mg/dL Calculated Osmolality 279 L (280-300) Calcium 9.5 (8.6-10.3) mg/dL - Radiology Data Radiology results reviewed: Yes I reviewed the patient's radiology results. Overdose HPI - General Chief Complaint: ED Overdose Stated Complaint: Overdose on meth Time Seen by Provider: 07/09/18 17:00 Source: EMS Limitations: altered mental status Nursing Notes Reviewed: Yes Vital Signs Reviewed: Yes - History of Present Illness HPI Narrative: Patient is a pleasant 28-year-old male with no significant PMH who is presenting to [facility] Emergency Room with a chief complaint off of amphetamine overdose. EMS [place] the [place]. Patient is unable to provide history and is only replied that I do not remember. He is also hallucinating and thinks that people are trying to harm him. On admission his heart rate was 140-150, groggy with altered mental status. Stat cardiopulmonary monitoring and IV fluid was given but later on patient pulled his IV and left of the bed taking that someone coming to take him away. He is confused and his mother with him in the room. He denies intentional use of drugs but was able to state that he took it amphetamine only. Patient denies any fever, chills or night sweats. Pt also denies any eye pain or visual disturbances. There is no sore throat, nasal drainages or facial congestion. There is no chest pain, palpitations or racing heart. Pt also denies any shortness of breath, cough or chest congestion. There is no abdominal pain, nausea, vomiting or diarrhea. There is no urgency, frequency or dysuria. There is no muskulo-skeletal pain, arthralgia or back pain. Patient also denies any rash, edema or pruritus. There is no neurological manifestations, no headache, no vertigo or weakness. The patient also denies any anxiety, depression,and has no homicidal or suicidal ideations. There is no polyuria, polydipsia or recent weight change. There is no easy bruising or bleeding. Review of other systems is otherwise negative except above. Pt Subjective Complaint: accidental overdose Onset (ago): hour(s) - Related Data Home Medications Medication Instructions Recorded Confirmed Buprenorphine HCl/Naloxone HCl 1 tab PO BID 06/24/17 10/01/17 [Suboxone 8 mg-2 mg Sl Film] Previous Rx's Medication Instructions Recorded Amoxicillin/Clavulanate [Augmentin] 875 mg PO BIDWM #6 tablet 03/21/18 Lactobacillus [Culturelle] 1 each PO BID #6 cap.sprink 03/21/18 Allergies Allergy/AdvReac Type Severity Reaction Status Date / Time No Known Allergies Allergy Verified 07/01/15 20:54 All systems ED: reviewed and negative except as stated. Review of Systems: As Per HPI Constitutional: Denies: fever, chills, weakness Eyes: Denies: eye pain, eye discharge ENT ED: Denies: ear pain, throat pain Cardiovascular: Denies: chest pain, palpitations Respiratory: Denies: cough, dyspnea, wheezes Gastrointestinal: Denies: abdominal pain, nausea Genitourinary: Denies: urgency, dysuria, frequency Musculoskeletal: Denies: back pain, neck pain Psychiatric: Reports: anxiety, auditory hallucinations, visual hallucinations. Denies: depression, suicidal thoughts, homicidal thoughts Past Medical History - Past Medical History Medical history: Reports: other Surgical history: Reports: appendectomy, other Psychiatric history: Reports: anxiety, depression - Social History Smoking Status: Current every day smoker Smokeless Tobacco Status: Yes Alcohol use: Reports: occasionally Drug use: Reports: opiates, marijuana, methamphetamine, IV Drug Use, prescription drug abuse Physical Exam - General Limitations: altered mental status General appearance: alert, appears intoxicated, lethargic, in distress - Head Head exam: atraumatic, normocephalic, normal inspection - Eye Eye exam: Present: normal appearance, PERRL, EOMI - Expanded Eye Exam Pupils: Left: reactive, Bilateral: size (4 mm but reactive direct and consentual to light) - ENT ENT exam: normal exam, normal oropharynx, mucous membranes moist - Expanded ENT Exam External ear exam: Present: normal external inspection Mouth exam: Present: normal external inspection Teeth exam: Present: normal inspection Throat exam: Present: normal inspection - Neck Neck exam: Present: normal inspection, full ROM, trachea midline - Chest Chest inspection: Present: normal inspection, symmetric chest wall rise - Respiratory Respiratory exam: Present: normal lung sounds bilaterally - Cardiovascular Cardiovascular exam: Present: regular rate, normal rhythm, normal heart sounds - Abdominal Exam Abdominal exam: Present: soft, Non-Tender. Absent: tenderness, distention, guarding, rebound, rigidity - Extremities Exam Extremities exam: Present: normal inspection, full ROM. Absent: tenderness, pedal edema - Expanded Upper Extremity Exam Shoulder exam: Present: normal inspection, full ROM Arm exam: Present: normal inspection, full ROM Elbow exam: Present: normal inspection, full ROM Forearm/Wrist exam: Present: normal inspection, full ROM Hand exam: Present: normal inspection, full ROM Vascular exam: Normal: capillary refill, radial pulse - Expanded Lower Extremity Exam Hip/Pelvis exam: Present: normal inspection, full ROM Upper leg exam: Present: normal inspection, full ROM Knee exam: Present: normal inspection, full ROM Lower leg exam: Present: normal inspection, full ROM Ankle exam: Present: normal inspection, full ROM Foot/toe exam: Present: normal inspection, full ROM Neurovascular/Tendon exam: Absent: motor deficit, sensory deficit, tendon deficit - Back Exam Back exam: Present: normal inspection, full ROM. Absent: tenderness - Neurological Exam Neurological exam: Present: alert, other (oriented to 2, HALLUCIATING) - Expanded Neurological Exam Patient oriented to: Present: person, place Coma Scale Eye Opening: Spontaneous Coma Scale Motor Response: Obeys Commands Coma Scale Verbal Response: Inappropriate Coma Scale Total: 13 - Psychiatric Psychiatric exam: Present: normal affect, normal mood, other - Skin Skin exam: Present: warm, dry, intact, normal color Course Vital Signs O2 Sat by Pulse Oximetry 96 07/09/18 16:53 Temperature 98 F 07/09/18 16:54 Pulse Rate 106 07/09/18 18:00 Respiratory Rate 15 07/09/18 18:00 Blood Pressure 161/107 07/09/18 18:00 O2 Sat by Pulse Oximetry 96 07/09/18 18:00 Oxygen Delivery Oxygen Delivery Room Air Disposition Clinical Impression: Methamphetamine intoxication, Hallucination, drug-induced Accidental drug ingestion Qualifiers: Encounter type: initial encounter Qualified Code(s): T50.901A - Poisoning by unspecified drugs, medicaments and biological substances, accidental ( unintentional), initial encounter Disposition: Admitted As Inpatient Condition: Undetermined Time of Disposition: 18:45 (Dr Rosa accepted him due to confusional status)
[2018-07-09 17:48] LABS: Basophils % 0.4 %; Eosinophils # 0.2 K/mcL (0.0-0.6); Eosinophils % 2.6 %; Hematocrit 40.4 % (37.5-50.1); Immature Granulocytes % 0.1 % (0-4); Lymphocytes # 1.3 K/mcL (0.6-4.6); Lymphocytes % 18.1 %; Mean Corpuscular HGB Conc 34.7 g/dL (31.6-35.5); Mean Corpuscular Hemoglobin 30.4 pg (28.0-33.3); Mean Corpuscular Volume 87.8 fL (83.0-100.0); Mean Platelet Volume 10.5 fL (9.4-12.4); Monocytes # 0.6 K/mcL (0.0-1.3); Monocytes % 8.6 %; Neutrophils # 4.9 K/mcL (1.6-8.9); Platelet Count 244 K/mcL (140-400); Red Cell Distribution Width 12.2 % (11.5-14.5); Segmented Neutrophils % 70.2 %
[2018-07-09 18:04] LABS: BUN/Creatinine Ratio 13 (6-26); Blood Urea Nitrogen 13 mg/dL (6-20); Calcium 9.5 mg/dL (8.6-10.3); Carbon Dioxide 25 mEq/L (23-29); Chloride 101 mEq/L (98-107); Glucose 120 mg/dL (70-105); Osmolality,Calculated 279 (280-300); Potassium 3.6 mEq/L (3.5-5.1); Sodium 134 mEq/L (136-145); eGFR For Non-African Americans > 60 (> 60)
[2018-07-09] MEDS ORDERED: Naloxone 0.4 MG/ML INJ IVP PRN (19:08)
[2018-07-09] MEDS: 0.9 % Sodium Chloride 1,000 ML IVC SCH (19:49)
[2018-07-09] MEDS ORDERED: Buprenorphine Hcl/Naloxone Hcl [Suboxone 8 Mg-2 Mg S PO SCH (21:00)
[2018-07-09] MEDS ORDERED: Lactobacillus 1 EACH CAP.SPRINK PO SCH (21:00)
[2018-07-10] MEDS: 0.9 % Sodium Chloride 1,000 ML IVC SCH (01:11)
[2018-07-10 05:33] LABS: Basophils % 0.5 %; Eosinophils # 0.3 K/mcL (0.0-0.6); Eosinophils % 4.5 %; Hematocrit 46.6 % (37.5-50.1); Hemoglobin 15.8 g/dL (12.9-16.9); Immature Granulocytes % 0.3 % (0-4); Lymphocytes # 2.5 K/mcL (0.6-4.6); Lymphocytes % 32.1 %; Mean Corpuscular HGB Conc 33.9 g/dL (31.6-35.5); Mean Corpuscular Volume 88.4 fL (83.0-100.0); Mean Platelet Volume 10.8 fL (9.4-12.4); Monocytes # 0.7 K/mcL (0.0-1.3); Monocytes % 8.9 %; Neutrophils # 4.1 K/mcL (1.6-8.9); Platelet Count 265 K/mcL (140-400); Red Blood Count 5.27 M/mcL (4.19-5.50); Red Cell Distribution Width 12.3 % (11.5-14.5); Segmented Neutrophils % 53.7 %
[2018-07-10 05:42] LABS: INR 1.1; Prothrombin Time 12.4 Seconds (9.4-12.1)
[2018-07-10 05:45] LABS: Activated Partial Thrombo Time 33.6 Seconds (26.0-36.0)
[2018-07-10 05:53] LABS: BUN/Creatinine Ratio 11 (6-26); Blood Urea Nitrogen 11 mg/dL (6-20); Calcium 10.1 mg/dL (8.6-10.3); Carbon Dioxide 26 mEq/L (23-29); Chloride 101 mEq/L (98-107); Glucose 88 mg/dL (70-105); Magnesium 2.2 mg/dL (1.6-2.6); Osmolality,Calculated 283 (280-300); Potassium 3.4 mEq/L (3.5-5.1); Sodium 137 mEq/L (136-145); eGFR For Non-African Americans > 60 (> 60)
[2018-07-10 06:54] VITALS: BP 122/71
--- NOTE | 2018-07-12 09:51 | Internal Med Progress Note ---
Date of Encounter: 07/12/18 Time of Encounter: 09:49 - Subjective Interval history: Patient was admitted through emergency room with drug overdose. He admitted to amphetamine use in emergency room. He was admitted to [facility] floor but left AMA before being seen by me. - Constitutional Vitals: Temp Pulse Resp BP Pulse Ox 98.4 F 80 16 122/71 98 07/10/18 06:51 07/10/18 06:51 07/10/18 06:51 07/10/18 06:51 07/10/18 06:51 Internal Medicine: Result - Labs CBC & Chem 7: 07/10/18 04:35 07/10/18 04:35 - ABG Interpretation ABG results: PT/INR, D-dimer PT 12.4 Seconds (9.4-12.1) H 07/10/18 04:35 Consult Discharge Plan - Plan Referrals: Mirlande Zafar, SALES CONTRACT ADMINISTRATOR [Primary Care Provider] - 1 week
== END 2018-07-10 07:52 | disposition left against medical advice (07) ==
LOC: INPPIK 16:52 → EMEROOPIK 16:52 → INPPIK 20:09
PROVIDERS: ADMIT Internal Medicine; ATTEND Internal Medicine